=== PATIENT | female | born 1985 | race African-American/Black ===

== ENCOUNTER 2017-11-12 13:45 | Emergency (ER) | payer OTHER ==
[2017-11-12 14:01] VITALS: BP 118/67; PULSE 75; TEMP 98.2; BMI 33.3
--- NOTE | 2017-11-12 15:43 | PDOC ---
History of Present Illness - General Chief Complaint: Respiratory Stated Complaint: FLU LIKE SYMPTOMS Time Seen by Provider: 11/12/17 14:51 History Source: Patient Exam Limitations: No Limitations - History of Present Illness Initial Comments: 11/12/17 15:38 Is here with complaints of same upper respiratory infection that's 2-year-old daughter is suffering from. She states her daughter was ill first and then she obtained same symptoms with runny nose, moist nonproductive cough, but no fevers earache or sore throat pain. Denies wheezing, or chest tightness. Has used Tylenol and some akjs-[id number] preparations with some resolve. Patient states had asthma as a child and was concerned about recurrence. Timing/Duration: reports: changing over time, getting worse Severity: reports: mild Associated Symptoms: reports: cough, fever/chills, nasal congestion, nasal drainage, shortness of breath Past History - Travel Traveled outside of the country in the last 30 days: No Close contact w/someone who was outside of country & ill: No - Past Medical History Allergies/Adverse Reactions: Allergies Allergy/AdvReac Type Severity Reaction Status Date / Time No Known Allergies Allergy Verified 11/12/17 14:01 Home Medications: Ambulatory Orders Albuterol Sulfate Inhaler - [Ventolin HFA Inhaler -] 1 - 2 inh PO Q4H #1 inhaler 11/12/17 Asthma: Yes COPD: No - Suicide/Smoking/Psychosocial Hx Smoking History: Never smoked Review of Systems - Review of Systems Able to Perform ROS?: Yes Is the patient limited Bel[place]ian proficient: Yes Constitutional: Yes: Symptoms Reported, See HPI, Chills, Fever, Malaise HEENTM: Yes: Symptoms Reported, See HPI, Nose Congestion. No: Throat Pain, Throat Swelling Respiratory: Yes: Symptoms reported, See HPI, Cough (moist nonproductive). No: Shortness of Breath, Wheezing Musculoskeletal: No: Symptoms Reported Neurological: Yes: Symptoms reported, See HPI. No: Headache All Other Systems: Reviewed and Negative *Physical Exam - Vital Signs Last Vital Signs Temp Pulse Resp BP Pulse Ox 98.2 F 75 18 118/67 99 11/12/17 13:58 11/12/17 13:58 11/12/17 13:58 11/12/17 13:58 11/12/17 13:58 - Physical Exam General Appearance: Yes: Nourished, Appropriately Dressed, Apparent Distress, Mild Distress HEENT: positive: FELY, TMs Normal (congested but landmarks easily visualized), Pharynx Normal, Nasal Congestion (clear), Rhinorrhea. negative: Sinus Tenderness Neck: positive: Supple. negative: Tender, Lymphadenopathy (R), Lymphadenopathy (L) Respiratory/Chest: positive: Lungs Clear, Normal Breath Sounds (course but clear , no wheezing or retractions noted) Cardiovascular: positive: Regular Rhythm Gastrointestinal/Abdominal: positive: Soft Extremity: positive: Normal Inspection Integumentary: positive: Normal Color, Dry, Warm Neurologic: positive: tobacco sprayer II-XII NML intact, Fully Oriented, Alert, Normal Mood/ Affect, Normal Response, Motor Strength /5 Progress Note - Progress Note Progress Note: Upper respiratory infection, mild. Youngest daughter is suffering from same. No evidence of bacterial infection therefore will treat with conservative measures and the/albuterol pump *DC/Admit/Observation/Transfer Diagnosis at time of Disposition: Common cold virus - Discharge Dispostion Disposition: HOME Condition at time of disposition: Stable Admit: No - Referrals Referrals: Margaret Hill MD [Primary Care Provider] - - Patient Instructions Printed Discharge Instructions: DI for Common Cold Additional Instructions: Rest, drink lots of fluids: Teas, water, soups, Pedialyte Saltwater gargles Steamy showers/seem to face break up mucus Avoid contact with others until fevers and cough resolved Lots of handwashing and good hygiene Continue [id number] medications for symptomatic relief Tylenol or Motrin for fever and pain May use Proventil inhaler 2 puffs 4 times a day for 2 days then as needed for persistent cough Followup with private physician in one to 2 days as needed Return to emergency department for worsened symptoms, fevers, dehydration - Post Discharge Activity Forms/Work/School Notes: Back to Work
== END 2017-11-12 15:49 | disposition home or self-care (01) ==
LOC: JERFT 13:45
DX: J06.9 Acute upper respiratory infection, unspecified (principal); B97.89 Other viral agents as the cause of diseases classified elsewhere
CPT/HCPCS: 99281-25

== ENCOUNTER → 2018-09-18 | Day surgery (SDC) | payer OTHER ==
--- NOTE | 2018-09-20 09:55 | PATH ---
Cytology Non-Gynecological Report Patient Name: LARRY ECHEVERRIA [facility]. Rec. #: [id number] /Age/Gender: 1985 (Age: 32) / F Account: [id number] Location: RADIOLOGY INTER Taken: 09/18/2018 Received: 09/18/2018 Reported: 09/20/2018 Physicians: El Magaña M.D. Specimen(s) Received RIGHT THYROID FNA Clinical History Right thyroid nodule, 3.32 x 2.30 x 2.11 cm Final Diagnosis THYROID, RIGHT, FINE NEEDLE ASPIRATION: SATISFACTORY FOR EVALUATION. BETHESDA CLASS II: BENIGN. CYTOLOGIC FINDINGS ARE CONSISTENT WITH A BENIGN FOLLICULAR NODULE. FOLLICULAR CELLS AND FOCAL REACTIVE/METAPLASTIC CHANGES IN A BACKGROUND OF ABUNDANT COLLOID PRESENT. Electronically Signed Lala Ha M.D. Gross Description Received are eight direct smears, four of which are air-dried and Diff-Quik stained, and four of which are alcohol fixed and Pap stained. Also received is 20 ml of bloody formalin from which one cellblock is prepared.
== END | disposition home or self-care (01) ==
LOC: JRADIR 09:44
PROVIDERS: ATTEND Internal Medicine Endocrinology, Diabetes & Metabolism
PROC: 0G9H3ZX Drainage of Right Thyroid Gland Lobe, Percutaneous Approach, Diagnostic (ICD-10-PCS; principal; 2018-09-18)
DX: E04.1 Nontoxic single thyroid nodule (principal)
CPT/HCPCS: 76942; 88173; 88305-TC

== ENCOUNTER → 2018-10-04 | Day surgery (SDC) | payer OTHER ==
--- NOTE | 2018-10-05 18:25 | PATH ---
Cytology Non-Gynecological Report Patient Name: LARRY ECHEVERRIA [facility]. Rec. #: [id number] /Age/Gender: 1985 (Age: 32) / F Account: [id number] Location: RADIOLOGY INTER Taken: 10/04/2018 Received: 10/04/2018 Reported: 10/05/2018 Physicians: El Magaña M.D. Specimen(s) Received A: LEFT THYROID FNA SLIDES AND MATERIAL RECEIVED IN FORMALIN B: LEFT THYROID FNA MATERIAL RECEIVED IN 50% ALCOHOL Clinical History Left thyroid nodule, 3.77 x 2.37 x 3.37 cm Final Diagnosis A & B. THYROID, LEFT, FINE NEEDLE ASPIRATION: SATISFACTORY FOR EVALUATION. BETHESDA CLASS II: BENIGN. CYTOLOGIC FINDINGS ARE CONSISTENT WITH A BENIGN FOLLICULAR NODULE WITH POST-HEMORRHAGIC CHANGE. SMALL FOLLICULAR CELLS WITH FOCAL REACTIVE CHANGES IN A BACKGROUND OF ABUNDANT COLLOID AND HEMOSIDERIN-LADEN MACROPHAGES. Electronically Signed Lala Ha M.D. Gross Description A. Received are eight direct smears, four of which are air-dried and Diff-Quik stained, and four of which are alcohol fixed and Pap stained. Also received is 20 ml of bloody formalin from which one cellblock is prepared. B. Received is 20 ml of bloody fluid in 50% alcohol from which one cellblock is prepared
== END | disposition home or self-care (01) ==
LOC: JRADIR 08:58 → EDSTATUS 09:00
PROVIDERS: ATTEND Internal Medicine Endocrinology, Diabetes & Metabolism
PROC: 0G9G3ZX Drainage of Left Thyroid Gland Lobe, Percutaneous Approach, Diagnostic (ICD-10-PCS; principal; 2018-10-04)
DX: E04.1 Nontoxic single thyroid nodule (principal)
CPT/HCPCS: 76942; 88173; 88305-TC

== ENCOUNTER 2019-11-19 11:07 | Emergency (ER) | payer OTHER ==
[2019-11-19 11:50] VITALS: BP 142/85; PULSE 86; TEMP 98.3; BMI 35.0
--- NOTE | 2019-11-19 12:39 | PDOC ---
History of Present Illness - General Chief Complaint: Cold Symptoms Stated Complaint: COUGH W/ BLOOD Time Seen by Provider: 11/19/19 11:53 - History of Present Illness Initial Comments: 11/19/19 12:37 33-year-old female without comorbidities presents for cough x2 weeks. She had a similar cough about a month ago which resolved and when with wet weather change her cough was recently exacerbated. She has no systemic symptoms Past History - Past Medical History Allergies/Adverse Reactions: Allergies Allergy/AdvReac Type Severity Reaction Status Date / Time No Known Allergies Allergy Verified 11/19/19 11:47 Home Medications: Ambulatory Orders Albuterol Sulfate Inhaler - [Ventolin HFA Inhaler -] 1 - 2 inh PO Q4H #1 inhaler 11/12/17 Cetirizine HCl [Zyrtec Rapidly Dissolving Tab -] 10 mg PO DAILY #30 tab Asthma: Yes COPD: No - Immunization History Immunization Up to Date: Yes - Psycho Social/Smoking Cessation Hx Smoking History: Never smoked Have you smoked in the past 12 months: No Information on smoking cessation initiated: No Hx Alcohol Use: No Drug/Substance Use Hx: No Review of Systems - Review of Systems Constitutional: No: Fever Respiratory: Yes: Cough *Physical Exam - Vital Signs Last Vital Signs Temp Pulse Resp BP Pulse Ox 98.3 F 86 17 142/85 96 11/19/19 11:47 11/19/19 11:47 11/19/19 11:47 11/19/19 11:47 11/19/19 11:47 - Physical Exam 11/19/19 12:37 GENERAL: The patient is awake, alert, and fully oriented, in no acute distress. HEAD: Normal with no signs of trauma. EYES: sclera anicteric, conjunctiva clear. ENT: Ears normal tympanic membranes normal oropharynx clear uvula midline NECK: Normal range of motion LUNGS: Breath sounds equal, clear to auscultation bilaterally. No wheezes, and no crackles. HEART: S1 and S2 without murmur, rub or gallop. ABDOMEN: Soft, nontender, normoactive bowel sounds. No guarding, no rebound. No masses. EXTREMITIES: Normal range of motion, no edema. No clubbing or cyanosis. No cords, erythema, or tenderness. NEUROLOGICAL: Cranial nerves II through XII grossly intact. Normal speech, normal gait. PSYCH: Normal mood, normal affect. SKIN: Warm, Dry, normal turgor, no rashes or lesions noted. Medical Decision Making - Medical Decision Making 11/19/19 12:37 Antihistamine for allergic cough follow-up with PCP Discharge - Discharge Information Problems reviewed: Yes Clinical Impression/Diagnosis: Allergic cough Condition: Stable Disposition: HOME - Admission No - Additional Discharge Information Prescriptions: Cetirizine HCl [Zyrtec Rapidly Dissolving Tab -] 10 mg PO DAILY #30 tab - Follow up/Referral Referrals: Kd Adan MD [Staff Physician] - - Patient Discharge Instructions Additional Instructions: Please take Zyrtec as directed return to the emergency room for worsening symptoms. And without fail follow-up with your primary care physician in 2 to 3 days for further evaluation and treatment options. - Post Discharge Activity
== END 2019-11-19 12:51 | disposition home or self-care (01) ==
LOC: JERFT 11:07
DX: R05 Cough (principal)
CPT/HCPCS: 99281-25